=== PATIENT | male | born 1940 | race Caucasian/White ===

== ENCOUNTER 2018-05-08 20:50 | Inpatient (IN) | payer OTHER ==
[2018-05-08 21:10] LABS: ADD MAN DIFF? NO
[2018-05-08 21:17] LABS: WHITE BLOOD COUNT 10.2 10^3/ul (4.8-10.8)
[2018-05-08 21:17] LABS: BASOPHILS % 0.2 % (0.0-2.0); EOSINOPHILS # 0.1 10^3/ul (0.0-0.5); EOSINOPHILS % 1.3 % (0.0-7.0); HEMATOCRIT 46.2 % (42.0-52.0); HEMOGLOBIN 14.8 g/dl (14.0-18.0); LYMPHOCYTES # 0.9 10^3/ul (0.8-2.9); MEAN CORPUSCULAR HEMOGLOBIN 30.1 pg (29.0-33.0); MEAN CORPUSCULAR VOLUME 93.9 fl (82.0-101.0); MONOCYTE # 0.7 10^3/ul (0.3-0.9); MONOCYTES % 7.1 % (0.0-11.0); NEUTROPHIL # 8.4 10^3/ul (1.6-7.5); NEUTROPHILS % 81.9 % (39.0-77.0); PLATELET COUNT 193 10^3/UL (140-415); RED BLOOD COUNT 4.92 10^6/ul (4.70-6.10); RED CELL DISTRIBUTION WIDTH 14.3 % (11.5-14.5)
[2018-05-08] MEDS: AZTREONAM 1 GM/NS (PMX) 50 ML IVPB (21:20)
[2018-05-08 21:21] LABS: AADO2 Arterial 28.9 mmHg (7.0-24.0); Allen Test ACCEPTAB; Arterial Blood Gas Oxygen Sat 83.1 mmHG (95.0-100.0); Arterial COHb 1.5 % (0.0-3.0); Arterial Fraction of Oxyhgb 81.5 % (93.0-99.0); Arterial HCO3 22.1 mmol/L (22.0-26.0); Arterial MetHb 0.4 % (0.0-1.5); Arterial Total Hemglobin 15.6 g/dl (12.0-18.0); Arterial pCO2 58.6 mmhg (35-45); MODE ROOM AIR; Site Left Radial
[2018-05-08] MEDS: SODIUM CHLORIDE 0.9% 1L BAG IV* (21:21)
[2018-05-08] MEDS: VANCOMYCIN 1 GM (PMX) 250 ML IVPB (21:30)
[2018-05-08 21:36] LABS: INR 1.06; PROTIME 13.9 Sec (11.9-14.9); PT RATIO 1.1
[2018-05-08] MEDS: ALBUTEROL 0.5% (NEB) 2.5 MG/0.5 ML AMP INH (21:37)
[2018-05-08] MEDS: IPRATROPIUM (NEB) 0.5 MG/2.5 ML AMP INH (21:37)
[2018-05-08 21:39] LABS: AMMONIA 11 umol/l (9-30)
[2018-05-08 21:39] LABS: ALANINE AMINOTRANSFERASE 17 IU/L (13-69); ALBUMIN 3.9 g/dl (3.3-4.9); ALBUMIN/GLOBULIN RATIO 1.25; ALKALINE PHOSPHATASE 91 IU/L (42-121); ANION GAP 15 (5-13); ASPARTATE AMINO TRANSFERASE 19 IU/L (15-46); BILIRUBIN,INDIRECT 0.2 mg/dl (0-1.1); BILIRUBIN,TOTAL 0.2 mg/dl (0.2-1.3); BLOOD UREA NITROGEN 96 mg/dl (7-20); CALCIUM 8.8 mg/dl (8.4-10.2); CARBON DIOXIDE 23 mmol/L (21-31); CHLORIDE 99 mmol/L (97-110); CREATININE 5.86 mg/dl (0.61-1.24); GLUCOSE 113 mg/dl (70-220); LIPASE 43 U/L (23-300); SODIUM 137 mmol/L (135-144)
[2018-05-08 21:41] LABS: LACTIC ACID 1.1 mmol/L (0.5-2.0)
[2018-05-08 21:42] LABS: POTASSIUM 5.6 mmol/L (3.5-5.1)
[2018-05-08 21:48] LABS: ETHANOL < 10.0 mg/dl
[2018-05-08 21:56] LABS: FREE THYROXINE INDEX (Calc) 1.49 ug/ml (0.65-3.89); T3 UPTAKE 43.9 % (23.5-40.5); T4 (THYROXINE) 3.4 ug/dl (5.5-11.0)
[2018-05-08] MEDS: IODIXANOL LOCM 100 ML BTL ×2 (22:51)
[2018-05-08] MEDS: SOD CHLORIDE 0.9% 100 ML ×2 (22:51)
[2018-05-08 23:11] LABS: LACTIC ACID 0.7 mmol/L (0.5-2.0)
[2018-05-09 00:18] LABS: ADD UMIC YES; UR ASCORBIC ACID NEGATIVE (NEGATIVE); UR BILIRUBIN (Dip) NEGATIVE (NEGATIVE); UR BLOOD (Dip) 3+ mg/dL (NEGATIVE); UR CLARITY CLOUDY (CLEAR); UR COLOR RED (YELLOW); UR GLUCOSE (Dip) NEGATIVE (NEGATIVE); UR KETONES (Dip) NEGATIVE (NEGATIVE); UR LEUKOCYTE ESTERASE (Dip) TRACE Leu/ul (NEGATIVE); UR MUCUS FEW /HPF (NONE SEEN); UR NITRITE (Dip) NEGATIVE (NEGATIVE); UR RBC > 182 /HPF (0-5); UR SPECIFIC GRAVITY (Dip) 1.027 (1.003-1.030); UR TOTAL PROTEIN (Dip) 2+ mg/dl (NEGATIVE); UR UROBILINOGEN (Dip) NEGATIVE (NEGATIVE); UR WBC 89 /HPF (0-5)
[2018-05-09] MEDS: CALCIUM GLUCONATE 10% 1 GM in DEXTROSE 5% 100 ML IVPB (00:24)
[2018-05-09] MEDS ORDERED: ONDANSETRON 4 MG INJ IV ×2 (00:30→10:00)
[2018-05-09] MEDS ORDERED: ACETAMINOPHEN 650 MG SUPP PR (00:30)
[2018-05-09 00:50] LABS: AMPHETAMINE/METHAMPHETAMINE Negative (NEGATIVE); BARBITURATES Negative (NEGATIVE); BENZODIAZEPINES Negative (NEGATIVE); CANNABINOIDS Negative (NEGATIVE); COCAINE Negative (NEGATIVE)
[2018-05-09 00:51] LABS: OPIATES Positive (NEGATIVE)
[2018-05-09 01:00] LABS: DIGOXIN < 0.4 ng/ml (1.0-2.0)
[2018-05-09 01:04] LABS: B-TYPE NATRIURETIC PEPTIDE 15100 PG/ML (0-450)
[2018-05-09 01:05] LABS: LACTIC ACID 0.9 mmol/L (0.5-2.0)
[2018-05-09] MEDS: ASPIRIN 300 MG SUPP PR (01:30)
[2018-05-09] MEDS: HEPARIN 5,000 UNIT/1 ML VIAL SC ×4 (01:30→22:59)
[2018-05-09] MEDS: METHYLPREDNISOLONE 125 MG INJ IV (01:30)
[2018-05-09 01:34] LABS: HAAIG REFLEX REFLEX FILED
[2018-05-09 01:58] LABS: C-REACTIVE PROTEIN 20.1 mg/dl (0.0-0.9)
[2018-05-09 02:02] LABS: HEMOGLOBIN A1C 5.8 % (0-5.9)
[2018-05-09 02:12] LABS: CARCINOEMBRYONIC ANTIGEN 2.8 ng/ml (0.0-5.0)
[2018-05-09 02:15] LABS: CANCER ANTIGEN 125 < 5.5 U/ml (0.0-35.0)
[2018-05-09 02:22] LABS: CREATINE KINASE 209 IU/L (23-200)
[2018-05-09 02:34] LABS: CK INDEX 3.2; CK-MB 6.74 ng/ml (0.0-2.4)
[2018-05-09 02:36] LABS: TROPONIN-I 0.801 ng/ml (0.000-0.120)
[2018-05-09 02:51] LABS: ERYTHROCYTE SEDIMENTATION RATE 62 mm/Hr (0-20)
[2018-05-09 03:01] LABS: FREE T3 4.56 pg/ml (2.77-5.27)
[2018-05-09 03:15] LABS: HEPATITIS B SURFACE ANTIGEN NEGATIVE (NEGATIVE)
[2018-05-09 03:33] LABS: HEPATITIS B CORE ANTIBODY REACTIVE (NEGATIVE); HEPATITIS C VIRAL ANTIBODY NEGATIVE (NEGATIVE)
[2018-05-09] MEDS: ALBUMIN HUMAN 25% 100 ML IV ×3 (04:02→10:58)
[2018-05-09 05:32] LABS: LACTIC ACID 0.8 mmol/L (0.5-2.0)
[2018-05-09 05:34] LABS: CREATINE KINASE 234 IU/L (23-200)
[2018-05-09 05:47] LABS: CK INDEX 3.2; CK-MB 7.57 ng/ml (0.0-2.4)
[2018-05-09 05:49] LABS: TROPONIN-I 0.724 ng/ml (0.000-0.120)
[2018-05-09] MEDS ORDERED: HEPARIN 5,000 UNIT/0.5 ML VIAL ×3 (06:05→22:56)
[2018-05-09] MEDS: PANTOPRAZOLE 40 MG INJ IV (06:19)
[2018-05-09] MEDS: SOD CHLORIDE 0.9% 500 ML IV (06:19)
[2018-05-09] MEDS ORDERED: VANCOMYCIN IV PER PHARMACY XX (06:30)
[2018-05-09] MEDS: VANCOMYCIN 1 GM 250 ML IVPB (08:30)
[2018-05-09] MEDS ORDERED: GLUCOSE GEL 15 GRAM TUBE BUCCAL (08:30)
[2018-05-09] MEDS ORDERED: GLUCAGON 1 MG INJ IM (08:30)
[2018-05-09] MEDS ORDERED: GLUCOSE GEL 15 GRAM TUBE PO ×2 (08:30)
[2018-05-09] MEDS: NALOXONE (0.4 MG/ML) INJ IV (08:35)
[2018-05-09 08:37] LABS: LACTIC ACID 0.6 mmol/L (0.5-2.0)
[2018-05-09] MEDS: INSULIN ASPART [NOVOLOG] 3 ML PEN SC ×4 (08:42→20:24)
[2018-05-09] MEDS: DEXTROSE 50% 50 ML SYRINGE IV ×2 (08:45→11:10)
[2018-05-09 09:11] LABS: ANION GAP 15 (5-13); BLOOD UREA NITROGEN 93 mg/dl (7-20); CARBON DIOXIDE 18 mmol/L (21-31); CHLORIDE 105 mmol/L (97-110); CREATININE 5.03 mg/dl (0.61-1.24); POTASSIUM 5.3 mmol/L (3.5-5.1); SODIUM 138 mmol/L (135-144)
[2018-05-09 09:16] LABS: GLUCOSE 48 mg/dl (70-220)
[2018-05-09 09:29] LABS: OSMOLALITY 317 mOsm/kg (280-295)
[2018-05-09 10:09] LABS: AADO2 Arterial 71.6 mmHg (7.0-24.0); Allen Test ACCEPTAB; Arterial Base Excess -11.6 mmol/L (-3.0-3); Arterial Blood Gas Oxygen Sat 89.2 mmHG (95.0-100.0); Arterial COHb 1.2 % (0.0-3.0); Arterial Fraction of Oxyhgb 87.8 % (93.0-99.0); Arterial HCO3 17.2 mmol/L (22.0-26.0); Arterial MetHb 0.4 % (0.0-1.5); Arterial Total Hemglobin 14.7 g/dl (12.0-18.0); Arterial pCO2 50.3 mmhg (35-45); MODE NASAL CANNULA; Site Left Radial
[2018-05-09] MEDS: FUROSEMIDE 20 MG INJ IV (10:58)
[2018-05-09] MEDS: ASPIRIN (EC) 81 MG TAB PO (10:58)
[2018-05-09] MEDS: AZTREONAM 0.5 GM in SOD CHLORIDE 0.9% 50 ML IV ×2 (10:59→20:22)
[2018-05-09] MEDS ORDERED: NA BICARBONATE 8.4% 50 ML SYG (11:09)
[2018-05-09] MEDS: NA BICARBONATE 8.4% 50 ML SYG IV ×3 (11:12→18:20)
[2018-05-09] MEDS: DEXTROSE 10% 1,000 ML IV (12:38)
[2018-05-09 13:32] LABS: AADO2 Arterial 134.2 mmHg (7.0-24.0); Allen Test ACCEPTAB; Arterial Base Excess -9.6 mmol/L (-3.0-3); Arterial Blood Gas Oxygen Sat 96.2 mmHG (95.0-100.0); Arterial COHb 0.7 % (0.0-3.0); Arterial Fraction of Oxyhgb 95.2 % (93.0-99.0); Arterial HCO3 18.9 mmol/L (22.0-26.0); Arterial MetHb 0.3 % (0.0-1.5); Blood Gas IEPAP 18/5; Blood Gas PS 13; MODE MASK - BIPAP; Site Left Radial
[2018-05-09 13:47] LABS: CREATINE KINASE 156 IU/L (23-200)
[2018-05-09 14:00] LABS: CK INDEX 3.2; CK-MB 5.06 ng/ml (0.0-2.4)
[2018-05-09 14:02] LABS: TROPONIN-I 0.547 ng/ml (0.000-0.120)
[2018-05-09 14:08] LABS: ANION GAP 13 (5-13)
[2018-05-09 14:09] LABS: BLOOD UREA NITROGEN 89 mg/dl (7-20); CALCIUM 7.5 mg/dl (8.4-10.2); CARBON DIOXIDE 19 mmol/L (21-31); CHLORIDE 101 mmol/L (97-110); CREATININE 4.52 mg/dl (0.61-1.24); POTASSIUM 4.8 mmol/L (3.5-5.1); SODIUM 133 mmol/L (135-144)
[2018-05-09 14:14] LABS: GLUCOSE 495 mg/dl (70-220)
[2018-05-09 14:59] LABS: GLUCOSE 99 mg/dl (70-220)
[2018-05-09 15:00] LABS: ADD UMIC YES; UR ASCORBIC ACID NEGATIVE (NEGATIVE); UR BACTERIA FEW /HPF (NONE SEEN); UR BILIRUBIN (Dip) NEGATIVE (NEGATIVE); UR BLOOD (Dip) 3+ mg/dL (NEGATIVE); UR CLARITY SLIGHTLY CLOUDY (CLEAR); UR COLOR YELLOW (YELLOW); UR GLUCOSE (Dip) NEGATIVE (NEGATIVE); UR KETONES (Dip) NEGATIVE (NEGATIVE); UR LEUKOCYTE ESTERASE (Dip) TRACE Leu/ul (NEGATIVE); UR MUCUS FEW /HPF (NONE SEEN); UR NITRITE (Dip) NEGATIVE (NEGATIVE); UR RBC 130 /HPF (0-5); UR SPECIFIC GRAVITY (Dip) 1.017 (1.003-1.030); UR TOTAL PROTEIN (Dip) 1+ mg/dl (NEGATIVE); UR UROBILINOGEN (Dip) NEGATIVE (NEGATIVE); UR WBC 21 /HPF (0-5)
[2018-05-09 16:11] LABS: CREATININE,URINE RANDOM 70.42 mg/dl (20-370); PROTEIN/CREAT RATIO 0.85 RATIO
[2018-05-09 16:31] LABS: SODIUM,URINE RANDOM 71 mmol/L (30-90)
[2018-05-09 16:31] LABS: CREATININE,URINE RANDOM 69.67 mg/dl (20-370)
[2018-05-09 16:36] LABS: OSMOLALITY,URINE 332 mOsm/kg (250-1200)
[2018-05-09 17:13] LABS: Arterial Base Excess -7.3 mmol/L (-3.0-3); Arterial Blood Gas Oxygen Sat 96.7 mmHG (95.0-100.0); Arterial Fraction of Oxyhgb 95.4 % (93.0-99.0); Arterial HCO3 21.5 mmol/L (22.0-26.0); Arterial Total Hemglobin 14.3 g/dl (12.0-18.0); Arterial pCO2 57.7 mmhg (35-45)
[2018-05-09 17:14] LABS: AADO2 Arterial 123.9 mmHg (7.0-24.0); Allen Test ACCEPTAB; Arterial MetHb 0.3 % (0.0-1.5); Blood Gas IEPAP 18/5; MODE MASK - BIPAP; Site Right Radial
[2018-05-09 17:25] LABS: ANION GAP 11 (5-13); BLOOD UREA NITROGEN 93 mg/dl (7-20); CALCIUM 7.9 mg/dl (8.4-10.2); CARBON DIOXIDE 22 mmol/L (21-31); CHLORIDE 106 mmol/L (97-110); CREATININE 4.48 mg/dl (0.61-1.24); GLUCOSE 92 mg/dl (70-220); SODIUM 139 mmol/L (135-144)
[2018-05-09 17:26] LABS: POTASSIUM 4.6 mmol/L (3.5-5.1)
[2018-05-09] MEDS: DOCUSATE SODIUM 100 MG CAP PO (20:24)
[2018-05-09] MEDS: SODIUM BICARBONATE (IV ADD) 75 MEQ in DEXTROSE 5%-0.45% NACL 925 ML IV (20:52)
[2018-05-09 21:36] LABS: AADO2 Arterial 63.4 mmHg (7.0-24.0); Allen Test ACCEPTAB; Arterial Base Excess -5.7 mmol/L (-3.0-3); Arterial COHb 0.9 % (0.0-3.0); Arterial Fraction of Oxyhgb 93.8 % (93.0-99.0); Arterial HCO3 21.4 mmol/L (22.0-26.0); Arterial MetHb 0.4 % (0.0-1.5); Arterial Total Hemglobin 14.2 g/dl (12.0-18.0); Arterial pCO2 47.6 mmhg (35-45); Blood Gas IEPAP 18/5; Blood Gas PS 13; MODE MASK - BIPAP; Site Right Radial
[2018-05-10] MEDS: INSULIN ASPART [NOVOLOG] 3 ML PEN SC ×6 (01:00→21:00)
[2018-05-10] MEDS: ACCU-CHEK XX (01:18)
[2018-05-10] MEDS: LORAZEPAM 2 MG INJ IV (03:36)
[2018-05-10] MEDS: ALBUTEROL 0.083% (NEB) 2.5 MG/3 ML AMP NEB (04:54)
[2018-05-10] MEDS: IPRATROPIUM (NEB) 0.5 MG/2.5 ML AMP NEB (04:54)
[2018-05-10 05:09] LABS: ADD MAN DIFF? NO
[2018-05-10 05:14] LABS: BASOPHILS % 0.1 % (0.0-2.0); EOSINOPHILS # 0.1 10^3/ul (0.0-0.5); EOSINOPHILS % 1.6 % (0.0-7.0); HEMATOCRIT 42.9 % (42.0-52.0); HEMOGLOBIN 13.6 g/dl (14.0-18.0); LYMPHOCYTES # 0.6 10^3/ul (0.8-2.9); LYMPHOCYTES % 8.4 % (15.0-51.0); MEAN CORPUSCULAR HEMOGLOBIN 29.8 pg (29.0-33.0); MEAN CORPUSCULAR HGB CONC 31.7 g/dl (32.0-37.0); MEAN CORPUSCULAR VOLUME 93.9 fl (82.0-101.0); MEAN PLATELET VOLUME 9.9 fl (7.4-10.4); MONOCYTE # 0.5 10^3/ul (0.3-0.9); MONOCYTES % 6.5 % (0.0-11.0); NEUTROPHIL # 6.1 10^3/ul (1.6-7.5); PLATELET COUNT 173 10^3/UL (140-415); RED BLOOD COUNT 4.57 10^6/ul (4.70-6.10); RED CELL DISTRIBUTION WIDTH 14.4 % (11.5-14.5)
[2018-05-10 05:14] LABS: WHITE BLOOD COUNT 7.4 10^3/ul (4.8-10.8)
[2018-05-10] MEDS ORDERED: HEPARIN 5,000 UNIT/0.5 ML VIAL ×2 (05:38→14:20)
[2018-05-10 05:41] LABS: ANION GAP 12 (5-13); BLOOD UREA NITROGEN 88 mg/dl (7-20); CALCIUM 8.1 mg/dl (8.4-10.2); CARBON DIOXIDE 23 mmol/L (21-31); CHLORIDE 108 mmol/L (97-110); CREATININE 3.47 mg/dl (0.61-1.24); GLUCOSE 93 mg/dl (70-220); MAGNESIUM 2.2 mg/dl (1.7-2.5); PHOSPHORUS 5.1 mg/dl (2.5-4.9); POTASSIUM 4.6 mmol/L (3.5-5.1); SODIUM 143 mmol/L (135-144)
[2018-05-10] MEDS: PANTOPRAZOLE 40 MG INJ IV (05:43)
[2018-05-10] MEDS: HEPARIN 5,000 UNIT/1 ML VIAL SC ×3 (05:45→22:00)
[2018-05-10 07:42] LABS: AADO2 Arterial 57.6 mmHg (7.0-24.0); Allen Test ACCEPTAB; Arterial Base Excess -4.6 mmol/L (-3.0-3); Arterial Blood Gas Oxygen Sat 88.2 mmHG (95.0-100.0); Arterial Fraction of Oxyhgb 87.1 % (93.0-99.0); Arterial HCO3 22.5 mmol/L (22.0-26.0); Arterial MetHb 0.3 % (0.0-1.5); Arterial pCO2 49.5 mmhg (35-45); MODE MASK - VENTI; Site Left Radial
[2018-05-10] MEDS: AZTREONAM 0.5 GM in SOD CHLORIDE 0.9% 50 ML IV ×2 (08:38→21:00)
[2018-05-10] MEDS: ASPIRIN (EC) 81 MG TAB PO (08:38)
[2018-05-10] MEDS: DOCUSATE SODIUM 100 MG CAP PO ×2 (08:39→21:00)
[2018-05-10] MEDS: DEXTROSE 5% 1,000 ML IV (08:49)
[2018-05-10] MEDS: LIDOCAINE 2% JELLY 5 ML TOP (10:23)
[2018-05-10] MEDS: FUROSEMIDE 40 MG INJ IV (12:51)
[2018-05-10 14:43] LABS: CREATININE, RANDOM URINE 73 mg/dL (20-320); MICROALBUMIN/CREATININE RATIO 247 (<30)
[2018-05-10] MEDS: LORAZEPAM 1 MG TAB PO (15:16)
[2018-05-10] MEDS: morphine 2 MG INJ IV (17:20)
[2018-05-10 18:26] LABS: ANA SCREEN POSITIVE (NEGATIVE)
[2018-05-10] MEDS: HALOPERIDOL 5 MG INJ IM (19:30)
[2018-05-11] MEDS: INSULIN ASPART [NOVOLOG] 3 ML PEN SC ×6 (01:00→21:00)
[2018-05-11] MEDS: ACCU-CHEK XX (01:56)
[2018-05-11] MEDS: ALBUTEROL 0.083% (NEB) 2.5 MG/3 ML AMP NEB ×2 (02:32→10:47)
[2018-05-11] MEDS: IPRATROPIUM (NEB) 0.5 MG/2.5 ML AMP NEB ×2 (02:32→10:47)
[2018-05-11] MEDS: DEXTROSE 5% 1,000 ML IV (04:00)
[2018-05-11 05:11] LABS: ADD MAN DIFF? NO
[2018-05-11 05:22] LABS: BASOPHILS % 0.3 % (0.0-2.0); EOSINOPHILS # 0.1 10^3/ul (0.0-0.5); HEMATOCRIT 44.6 % (42.0-52.0); HEMOGLOBIN 14.3 g/dl (14.0-18.0); LYMPHOCYTES # 0.8 10^3/ul (0.8-2.9); LYMPHOCYTES % 10.8 % (15.0-51.0); MEAN CORPUSCULAR HGB CONC 32.1 g/dl (32.0-37.0); MEAN CORPUSCULAR VOLUME 93.7 fl (82.0-101.0); MEAN PLATELET VOLUME 9.6 fl (7.4-10.4); MONOCYTE # 0.5 10^3/ul (0.3-0.9); MONOCYTES % 7.7 % (0.0-11.0); NEUTROPHIL # 5.5 10^3/ul (1.6-7.5); NEUTROPHILS % 78.6 % (39.0-77.0); PLATELET COUNT 179 10^3/UL (140-415); RED BLOOD COUNT 4.76 10^6/ul (4.70-6.10); RED CELL DISTRIBUTION WIDTH 13.9 % (11.5-14.5)
[2018-05-11 05:38] LABS: ANION GAP 12 (5-13); BLOOD UREA NITROGEN 74 mg/dl (7-20); CALCIUM 8.7 mg/dl (8.4-10.2); CARBON DIOXIDE 24 mmol/L (21-31); CHLORIDE 106 mmol/L (97-110); CREATININE 2.53 mg/dl (0.61-1.24); GLUCOSE 123 mg/dl (70-220); PHOSPHORUS 3.4 mg/dl (2.5-4.9); POTASSIUM 4.4 mmol/L (3.5-5.1); SODIUM 142 mmol/L (135-144)
[2018-05-11] MEDS: PANTOPRAZOLE 40 MG INJ IV (05:43)
[2018-05-11] MEDS: HEPARIN 5,000 UNIT/1 ML VIAL SC ×3 (05:54→22:00)
[2018-05-11] MEDS: ASPIRIN (EC) 81 MG TAB PO (08:59)
[2018-05-11] MEDS: FUROSEMIDE 20 MG INJ IV (08:59)
[2018-05-11] MEDS: DOCUSATE SODIUM 100 MG CAP PO ×2 (08:59→20:11)
[2018-05-11] MEDS: AZTREONAM 0.5 GM in SOD CHLORIDE 0.9% 50 ML IV ×2 (09:12→20:10)
[2018-05-11 10:12] LABS: AADO2 Arterial 81.8 mmHg (7.0-24.0); Allen Test ACCEPTAB; Arterial Base Excess -2.3 mmol/L (-3.0-3); Arterial Blood Gas Oxygen Sat 92.5 mmHG (95.0-100.0); Arterial COHb 1.2 % (0.0-3.0); Arterial Fraction of Oxyhgb 91.1 % (93.0-99.0); Arterial HCO3 23.8 mmol/L (22.0-26.0); Arterial MetHb 0.3 % (0.0-1.5); Arterial Total Hemglobin 16.2 g/dl (12.0-18.0); Arterial pCO2 45.7 mmhg (35-45); MODE MASK - VENTI; Site Right Radial
[2018-05-11 12:28] LABS: ANA PATTERN HOMOGENEOUS
[2018-05-11] MEDS ORDERED: HEPARIN 5,000 UNIT/0.5 ML VIAL (13:26)
[2018-05-11] MEDS: hydrALAzine 20 MG INJ IV (15:10)
[2018-05-11] MEDS ORDERED: hydrALAzine 20 MG INJ (15:49)
[2018-05-11] MEDS: AMLODIPINE 10 MG TAB PO (16:13)
[2018-05-11] MEDS: morphine 2 MG INJ IV (20:57)
[2018-05-12] MEDS ORDERED: PANTOPRAZOLE (EC) 40 MG TAB PO (06:00)
== END 2018-05-11 22:55 | disposition short-term general hospital (02) | DRG 291 ==
LOC: E/R 20:50 → ICU 23:53
PROC: 5A09457 Assistance with Respiratory Ventilation, 24-96 Consecutive Hours, Continuous Positive Airway Pressure (ICD-10-PCS; principal; 2018-05-09)
PROC: 4A133R1 Monitoring of Arterial Saturation, Peripheral, Percutaneous Approach (ICD-10-PCS; 2018-05-09)
DX: I13.0 Hypertensive heart and chronic kidney disease with heart failure and stage 1 through stage 4 chronic kidney disease, or unspecified chronic kidney disease (principal); I50.23 Acute on chronic systolic (congestive) heart failure; G92 Toxic encephalopathy; J96.21 Acute and chronic respiratory failure with hypoxia; J96.22 Acute and chronic respiratory failure with hypercapnia; J44.1 Chronic obstructive pulmonary disease with (acute) exacerbation; N39.0 Urinary tract infection, site not specified; Z68.41 Body mass index [BMI] 40.0-44.9, adult; N17.9 Acute kidney failure, unspecified; C64.1 Malignant neoplasm of right kidney, except renal pelvis; E87.4 Mixed disorder of acid-base balance; I42.9 Cardiomyopathy, unspecified; E03.9 Hypothyroidism, unspecified; E87.5 Hyperkalemia; I25.10 Atherosclerotic heart disease of native coronary artery without angina pectoris; M15.9 Polyosteoarthritis, unspecified; E66.01 Morbid (severe) obesity due to excess calories; I95.9 Hypotension, unspecified; J84.10 Pulmonary fibrosis, unspecified; N18.9 Chronic kidney disease, unspecified; E11.22 Type 2 diabetes mellitus with diabetic chronic kidney disease; Z85.028 Personal history of other malignant neoplasm of stomach; Z95.810 Presence of automatic (implantable) cardiac defibrillator; D64.9 Anemia, unspecified; D69.6 Thrombocytopenia, unspecified; Z90.3 Acquired absence of stomach [part of]; Z87.891 Personal history of nicotine dependence; Z88.0 Allergy status to penicillin
CPT/HCPCS: 36415; 36600; 70450; 71045; 71275; 74177; 76775; 80048; 80053; 80162; 80307; 81001; 81003; 82043; 82140; 82378; 82533; 82550; 82553; 82570; 82803; 82947; 82962; 83036; 83605; 83690; 83735; 83880; 83930; 83935; 84100; 84155; 84300; 84436; 84443; 84479; 84481; 84484; 85025; 85610; 85651; 85730; 86038; 86140; 86304; 86704; 86709; 86803; 87040; 87081; 87086; 87340; 93005; 93306; 94640; 94644; 94660; 96365; 96366; 96368; 99291-25